=== PATIENT | female | born 1970 | race Caucasian/White ===

== ENCOUNTER 2017-12-13 04:04 | Emergency (ER) | payer OTHER ==
[2017-12-13] MEDS ORDERED: EPINEPHrine 1 MG/10 ML SYR IVP ONE ×2 (04:07→19:33)
--- NOTE | 2017-12-13 04:26 | EDPHY ---
H & P Stated Complaint: CPR Time Seen by Provider: 12/13/17 04:17 HPI/ROS: HPI The patient presents with cardiac arrest, brought in by ambulance. She was last seen normal at 10:30 p.m. Last night when she went to bed. She was found unresponsive by her at 3:20 a.m. And had bleeding in her bed. It is unclear if the bleeding was rectal or vaginal. CPR was started right away. EMS was called and they performed CPR. She has been in PEA and then VFib. She was treated with epinephrine, 4 rounds, intubated with a Javy tube in the field. She received 1.5 L of normal saline Paramedics had pulses during transport, however lost them on arrival to the ED. According to her father, yesterday she was sitting up in a wheelchair having cocktails with friends, was complaining of mild abdominal discomfort. She was previously on hospice, however was taken off because she was doing so well at [facility]. She had received some care at the [facility]. She has recently started on anticoagulation for DVT treatment. REVIEW OF SYSTEMS Unable to obtain given patient's mental status PMHx: Uterine cancer status post hysterectomy, recently started on anticoagulation of some sort for a DVT Soc Hx: Residing at [facility] PHYSICAL General Appearance: Unresponsive Eyes: Pupils equal and round ENT, Mouth: Mucous membranes moist, intubated with Javy tube, no spontaneous respirations Respiratory: Breath sounds present with bagging Cardiovascular: CPR in progress Gastrointestinal: Abdomen is hugely distended, there is malodorous blood pooling around her groin Neurological: Pupils fixed and dilated, no spontaneous respirations, extremities are limp Skin: Pale Extremities: symmetrical, I 0 in left leg Source: Family, EMS Exam Limitations: Clinical condition - Personal History Tetanus Vaccine Date: 2008 - Medical/Surgical History Hx Asthma: No Hx Chronic Respiratory Disease: No Hx Diabetes: Yes Hx Cardiac Disease: No Hx Renal Disease: No Hx Cirrhosis: No Hx Alcoholism: No Hx HIV/AIDS: No Hx Splenectomy or Spleen Trauma: No Other PMH: uterine CA, total hysterectomy 03/06/16, lupus, DVT in RLE 2001, DM2 - Social History Smoking Status: Former smoker Constitutional: O2 Delivery Mode Bag Valve Mask Allergies/Adverse Reactions: quetiapine [From Seroquel] Allergy (Verified 12/13/17 04:18) Sulfa (Sulfonamide Antibiotics) Allergy (Verified 12/13/17 04:18) Other-Enter Comments Home Medications: Medication Instructions Recorded Ativan 12/13/17 Lovenox 12/13/17 morphINE 12/13/17 Medical Decision Making Differential Diagnosis: This is a 47-year-old female with history of uterine cancer, currently being treated for a DVT with anticoagulation who presents with cardiac arrest in the setting of bleeding, either vaginal or rectal. She was last seen at 10:30 p.m. Acting herself. She went to bed with her at the bedside. She was found in a pool of blood without pulses at about 3:20 a.m.. Medics perform CPR for 45 min prior to transfer and patient was in VFib and PEA, though did regain pulses after CPR and epinephrine. Pulses were lost in the ambulance and CPR is in progress. I met the paramedics at the bedside to obtain their report. The patient is actively bleeding from what appears to be her rectum or possibly vagina. CPR was performed for 2 min, pulse check demonstrated no pulses. She had a narrow complex rhythm on the monitor. Patient received IV fluids. She was given epinephrine and CPR was continued for an additional 2 rounds. No pulses were established. She continued to bleed. Given prolonged down time with no blood pressure obtained during her CPR and ongoing hemorrhage on anticoagulation with no clear definitive treatment, after several rounds of CPR the code was called. Patient is here with her father and . They did not wish to be present during CPR, however joined us in the resuscitation room. I have answered their questions. Critical Care Time: CRITICAL CARE Critical care time spent by me, Dr. Araujo, exclusively with this patient was 30 minutes, exclusive of PA time and exclusive of procedures. The organ system at risk was cardiac and I gave IV fluids, epinephrine, CPR to prevent worsening of the patients condition. - Data Points Medications Given: Discontinued Medications Epinephrine HCl (Epinephrine) 1 mg IVP EDNOW ONE Stop: 12/13/17 04:08 Last Admin: 12/13/17 04:07 Dose: 1 mg Departure - Departure Disposition: Clinical Impression: Cardiopulmonary arrest, Hemorrhage Condition: Critical Referrals: NONE *PRIMARY CARE P,. [Primary Care Provider] - As per Instructions
--- NOTE | 2017-12-13 11:55 | ASMTCMCOM ---
CM Note CM Note Notes: Family has identified [facility] for body to be released. I have confirmed this with Yifan at [facility] and they are en route to hospital. Security informed. Date Signed: 12/13/2017 11:54 AM Electronically Signed By:Yu Matthews RN
== END 2017-12-13 04:13 | disposition expired ==
LOC: EDUNIT#
DX: I46.9 Cardiac arrest, cause unspecified (principal); N93.9 Abnormal uterine and vaginal bleeding, unspecified; E11.9 Type 2 diabetes mellitus without complications; Z85.41 Personal history of malignant neoplasm of cervix uteri; Z87.891 Personal history of nicotine dependence
CPT/HCPCS: 96374